=== PATIENT | female | born 1955 | race African-American/Black ===

== ENCOUNTER 2021-09-18 13:39 | Outpatient (CLI) | payer BC, SELFPAY ==
[2021-09-17 14:29] LABS: Glucose Point of Care 117 mg/dl (65-105)
--- NOTE | ~2021-09-18 | PE_ITS ---
EXAMINATION: PET skull to mid thigh DATE: 09/18/2021 15:56 INDICATION: Small nodules of the lung TECHNIQUE: 7 mCi of 18-fluorodeoxyglucose (18-FDG) was administered i.v. Low dose computed tomography (CT) images were acquired from the base of the brain to the proximal thighs for attenuation correcti on and anatomic localization. Positron emission tomography (PET) images were acquired after injection . Images including fused PET/CT images were reconstructed in axial, coronal, and sagittal planes. Aut omatic exposure control is employed as a dose reduction technique. COMPARISON: None FINDINGS: Head/neck: The mucosal and parapharyngeal spaces are symmetric. There is mild FDG uptake in the mucosal space wi thout associated mass, likely physiologic. Small subcentimeter hypodensity in the left thyroid gland without uptake, likely benign. No significant cervical lymphadenopathy. No significant abnormality of the sinuses or mastoids. Chest: There is mild mediastinal and bilateral hilar FDG uptake within lymph nodes. For instance subcarinal lymph nodes demonstrate a max SUV of 5.0. Right hilar lymph nodes demonstrate a max SUV of 4.7 and le ft hilar lymph nodes demonstrate a max SUV of 4.7. AP window lymph nodes demonstrate a max SUV of 6. There are multiple small nodules in both lungs. There is a 9 mm nodule in the left upper lobe with mi ld FDG uptake. Maximum SUV of 2.1. There is pleural-based nodularity at the left upper lobe with mild FDG uptake of 1.8. This nodule measures 1.8 x 1.3 cm with irregular margins. There is an 8 mm nodule in the right apex with maximum SUV of 2. There is biapical pleural thickening/scarring. There are mu ltiple additional scattered bilateral pulmonary nodules in both lungs with only mild FDG uptake. No s ignificant pleural or pericardial effusion. Cardiomegaly. Abdomen/pelvis/proximal thighs: There is no hypermetabolic activity in the abdomen or pelvis. There is mild uptake throughout the bow el without associated mass, likely physiologic. There is a 4 cm liver cyst. There are calcified granu peter of the spleen. The pancreas, adrenal glands and kidneys are unremarkable. Gallbladder is presen t. Nonobstructive bowel gas pattern. Moderate colonic fecal loading. No lymphadenopathy. No abnormal pelvic masses or fluid collections. No free air or free fluid. Bones/Soft tissues: No hypermetabolic activity in the bones or soft tissues. IMPRESSION: 1. Mediastinal and bilateral hilar lymphadenopathy with hypermetabolic FDG uptake. Differential diagn osis includes metastatic disease, lymphoma and benign etiologies such as sarcoidosis. 2: Innumerable bilateral pulmonary nodules, largest in the left upper lobe measuring up to 1.8 cm wit h intermediate FDG uptake and maximum SUV of 1.8. These are indeterminate for malignancy and may be i nfectious/inflammatory sequela or sequela of lymphoma or sarcoidosis. Reviewed, dictated and finalized at location A. IMPRESSION: 1. Mediastinal and bilateral hilar lymphadenopathy with hypermetabolic FDG upta ke. Differential diagnosis includes metastatic disease, lymphoma and benign marilee ologies such as sarcoidosis. 2: Innumerable bilateral pulmonary nodules, largest in the left upper lobe magdiel uring up to 1.8 cm with intermediate FDG uptake and maximum SUV of 1.8. These a re indeterminate for malignancy and may be infectious/inflammatory sequela or s equela of lymphoma or sarcoidosis.
[2021-09-18 14:19] LABS: Glucose Point of Care 98 mg/dl (65-105)
== END 2021-09-18 13:40 | disposition home or self-care (01) ==
PROVIDERS: PCP Internal Medicine; Visit Provider Internal Medicine Pulmonary Disease
DX: R91.1 Solitary pulmonary nodule (principal)
CPT/HCPCS: 78815; A9552

== ENCOUNTER 2025-05-09 08:56 | Outpatient (CLI) | payer OTHER, SELFPAY ==
--- NOTE | ~2025-05-09 | MM_ITS ---
EXAMINATION: MM screening juan jose BI w merary HISTORY: Screening TECHNIQUE: Craniocaudal and mediolateral oblique 3-D tomosynthesis images were obtained and synthetic 2-D images were generated. CAD analysis was submitted and interpreted. COMPARISON: No prior mammogram is available for comparison at this institution. BREAST PARENCHYMAL COMPOSITION: Not dense: There are scattered areas of fibroglandular density. FINDINGS: There is no evidence of suspicious mass, calcification, or architectural distortion to suggest malignancy in either breast. There has been no suspicious interval change. IMPRESSION: 1. No mammographic evidence of malignancy. 2. Recommend routine screening mammography in one year. BI-RADS Category 1: Negative Reviewed, dictated and finalized at location C. [employer] COMPLIANCE OFFICER
--- OUTSIDE RECORDS SUMMARY | 2025-05-09 09:12 | XMS_ITS | Encounter Summary ---
Author Organization [facility] Address [address] [facility] [place] [address] Phone Care Team Providers Care Purchase Request Editor Name Role Phone Dwight Villatoro MD Primary Care Provider [phone] Encounter Details Date Type Department Care Team (Latest Contact Info) Description 08/26/2019 Orders Only [facility] Scanning, Provider Social History Tobacco Use Types Packs/Day Years Used Date Smoking Tobacco: Never Assessed Comments Unknown Sex and Gender Information Value Date Recorded Sex Assigned at Not on file Legal Sex Female 6:01 AM CDT Gender Identity Not on file Sexual Orientation Not on file documented as of this encounter Plan of Treatment Not on file documented as of this encounter Procedures Procedure Name Priority Date/Time Associated Diagnosis Comments SCAN - RADIOLOGY/IMAGING 08/26/2019 documented in this encounter Results * SCAN - RADIOLOGY/IMAGING (08/26/2019) Anatomical Region Laterality Modality Other us Provider Scanning Final Result documented in this encounter Visit Diagnoses Not on filedocumented in this encounter Care Teams Purchase Request Editor Relationship Specialty Start Date End Date Dwight Villatoro MD PCP - General Internal Medicine 07/03/21 documented as of this encounter
--- OUTSIDE RECORDS SUMMARY | 2025-05-09 09:12 | XMS_ITS | Encounter Summary ---
Author Organization [facility] Address [address] [place] [address] Phone Care Team Providers Care Open Hearth Door Liner Name Role Phone Dwight Villatoro MD Primary Care Provider [phone] Encounter Details Date Type Department Care Team (Latest Contact Info) Description 12/28/2020 Orders Only [facility] Scanning, Provider [...] Date/Time Associated Diagnosis Comments SCAN - RADIOLOGY/IMAGING 12/28/2020 documented in this encounter Results * SCAN - RADIOLOGY/IMAGING (12/28/2020) Anatomical Region Laterality Modality Other us Provider Scanning Final Result documented in this encounter Visit Diagnoses Not on filedocumented in this encounter Care Teams Open Hearth Door Liner Relationship Specialty Start Date End Date Dwight Villatoro MD PCP - General Internal Medicine 07/03/21 documented as of this encounter
--- OUTSIDE RECORDS SUMMARY | 2025-05-09 09:12 | XMS_ITS | Encounter Summary ---
Author Organization [facility] Address [address] [place] [address] Phone Care Team Providers Care Herbarium Curator Name Role Phone Dwight Villatoro MD Primary Care Provider [phone] Encounter Details Date Type Department Care Team (Latest Contact Info) Description 07/04/2019 Orders Only [facility] Scanning, Provider [...] Date/Time Associated Diagnosis Comments SCAN - RADIOLOGY/IMAGING 07/04/2019 documented in this encounter Results * SCAN - RADIOLOGY/IMAGING (07/04/2019) Anatomical Region Laterality Modality Other us Provider Scanning Final Result documented in this encounter Visit Diagnoses Not on filedocumented in this encounter Care Teams Herbarium Curator Relationship Specialty Start Date End Date Dwight Villatoro MD PCP - General Internal Medicine 07/03/21 documented as of this encounter
--- OUTSIDE RECORDS SUMMARY | 2025-05-09 09:12 | XMS_ITS | Encounter Summary ---
Author Organization [facility] Address [address] [place] [address] Phone Care Team Providers Care Supervisor Scenic Arts Name Role Phone Dwight Villatoro MD Primary Care Provider [phone] Encounter Details Date Type Department Care Team (Latest Contact Info) Description 10/21/2021 Orders Only [facility] Scanning, Provider Social History Tobacco Use Types Packs/Day Years Used Date Smoking Tobacco: Never Smokeless Tobacco: Never AUDIT-C Answer Date Recorded Q1: How often do you have a drink containing alc ohol? Never 10/24/2021 Average Number of Drinks Not on file 022 Q3: How often do you have si x or more drinks on one occasion? Never 10/24/2021 Comments Unknown Sex and Gender Information Value Date Recorded Sex Assigned at Not on file Legal Sex Female 6:01 AM CDT Gender Identity Not on file Sexual Orientation Not on file documented as of this encounter Functional Status * Question Answer Date of Assessment Author BP Location Left arm 10/24/2021 8:06 AM CDT Denisha Rock RN * [place] Fall Risk Question Answer Date of Assessment Author Auto Low/High - if selected proceed to interventions (retired) High risk-fall during this visit 10/24/2021 8:04 AM CDT Denisha Rock RN Morse Fall Risk Score (Score >= 45 places fall precaution order) 50 10/24/2021 8:04 AM KASHIFT Denisha Rock RN * Fall Risk Interventions Question Answer Date of Assessment Author All Low Fall Interventions Applied Yes 10/24/2021 8:04 AM Denisha Hillman RN All Moderate Fall Interventions Applied No 10/24/2021 8:04 AM Denisha Hillman RN All High Fall Risk Interventions Applied No 10/24/2021 8:04 AM Denisha Hillman RN Additional Interventions Applied Constant observation 10/24/2021 8:04 AM Denisha Hillman RN * Alcohol Use Question Answer Date of Assessment Author Q1: How often do you have a drink containing alcohol? Never 10/24/2021 8:03 AM Harris Hillman RN Q3: How often do you have si x or more drinks on one occasion? Never 10/24/2021 8:03 AM Denisha Hillman RN * Question Answer Date of Assessment Author MAP (mmHg) 115 10/24/2021 9:23 AM Denisha Hillman RN * Question Answer Date of Assessment Author BP Location Left arm 10/24/2021 8:06 AM Denisha Hillman RN * Fall Risk Interventions Question Answer Date of Assessment Author All Low Fall Interventions Applied Yes 10/24/2021 8:04 AM Denisha Hillman RN All Moderate Fall Interventions Applied No 10/24/2021 8:04 AM Denisha Hillman RN All High Fall Risk Interventions Applied No 10/24/2021 8:04 AM Denisha Hillman RN Additional Interventions Applied Constant observation 10/24/2021 8:04 AM Denisha Hillman RN documented as of this encounter Plan of Treatment Not on file documented as of this encounter Procedures Procedure Name Priority Date/Time Associated Diagnosis Comments SCAN - LABS 10/21/2021 documented in this encounter Results * SCAN - LABS (10/21/2021) us Provider Scanning Final Result documented in this encounter Visit Diagnoses Not on filedocumented in this encounter Care Teams Supervisor Scenic Arts Relationship Specialty Start Date End Date Dwight Villatoro MD PCP - General Internal Medicine 07/03/21 documented as of this encounter
--- OUTSIDE RECORDS SUMMARY | 2025-05-09 09:13 | XMS_ITS | Data Portability ---
Author Organization [facility] [place] Address [address] [place] [address] Care Team Providers Care Restaurant Mgr Name Role Phone LARISA WATSON Primary Care Provider Assessment Encounter Date Assessment Date Assessment LastModified by Organization Details LastModified Time 06/15/2021 06/15/2021 Annual gynecological exam performed. Patient will come back in a year unless there are new symptoms. [email or web address] Not available 06/15/2021 10:41:50 11/10/2022 11/10/2022 Annual gynecological exam performed. Patient will come back in a year unless there are new symptoms. Not available 11/10/2022 15:12:39 09/28/2023 09/28/2023 Annual gynecological exam performed. Patient will come back in a year unless there are new symptoms. Not available 09/28/2023 12:04:18 10/03/2024 10/03/2024 Annual gynecological exam performed. Patient will come back in a year unless there are new symptoms. [email or web address] Not available 10/03/2024 14:13:00 Plan of Treatment Reminders Order Date Submit Date Provider Last Modified By Organization Details Last Modified Time Details Appointments None recorded. Lab None recorded. Referral None recorded. Procedures None recorded. Surgeries None recorded. Imaging None recorded. Medication Orders estradiol 0.01% (0.1 mg/gram) vaginal cream 2020 021 [id number], [address] [place], [place], [id number], 10:41:59 Patient TargetsNo targets recorded. Patient InstructionsNo instructions recorded. Reason for Referral None Reported. Results Created Date Observation Date Name Description Value Unit Range Abnormal Flag Note LastModifiedBy Organization Detail LastModifiedTime 06/17/20 21 06/17/2021 IMAGE GUIDE D PAP AND HPV REGAR DLESS image guided Pap, HPV regardless of Pap result SEE RESULT S BELOW CASE REPOR T: Cytol ogy Gynec ologi cassi Repor t Case: [id number] Autho sinaiemir rocky Provi wayne: Mg Parra MD Colle cted: 06/17 0803 Order ing Locat ion: [place] Patho logy Recei ara: 06/18 0106 First Scree n: Hope Pedro, CT Speci men: Scree jaci Pap - Image d, Cervi x STATE MENT OF ADEQU ACY: Satis facto ry for evalu ation Trans forma tion zone compo nent prese nt FINAL DIAGN OSIS: Negat natacha for Intra epith elial Lesio redd or Royer strickland (NIL) . Elect minor vazquez elisha d by Hope Pedro CT on 06/26 at 4:31 PM ----- ----- ----- ----- ----- ----- ----- ----- ----- ----- ----- ----- ----- ----- ----- ----- ----- ---- HPV RESUL TS: HPV mRNA E6/E7 : No HPV mRNA Detec josse NOTE: This high risk HPV mRNA assay detec ts fourt een high- risk HPV types (16, 18, 31, 33, 35, 39, 45, 51, 52, 56, 58, 59, 66, 68) witho ut diffe renti ation . COMME NT: Note: This speci men was revie wed by a Cytot echno logis t and/o r Patho logis t (as indic ated in this repor t) after evalu ation using the Thinp rep Imagi ng Syste m. CLINI CASSI INFOR MATIO N: Menst rual Statu s: LMP (if appli cable ): Clini cassi Histo ry/Pr eviou s Pap: Type of Neopl juan (if appli cable ): Signi fican t Clini cassi Findi ngs: Other Histo ry: Hormo lubna (if appli cable ): PAP EDUCA KYRIE L NOTE: The Pap Test is a scree jaci test with an inher ent false negat natacha rate. Liqui d-bas e sampl ing may decre ase, but will not elimi abdiel, false negat natacha resul ts. A negat natacha resul t does not precl ude the prese nce and/o r devel opmen t of disea se, since the prese nce of abnor mal cells in the sampl e depen ds on the locat ion of the lesio n and sampl ing techn ique. Maged nued regul ar scree jaci is the best metho d of cance r preve ntion . If repor josse cytol ogic findi ng do not corre late with physi cassi and/o r histo rical findi ngs, furth er inves tigat ion is recom onelia d, as clini beatris alanis nted. Not Available [facility] (Lab) [address], [place], [address], 06/26/2021 17:34:18 11/11/19 23 11/10/2022 IMAGE GUIDE D PAP AND HPV REGAR DLESS image guided Pap, HPV regardless of Pap result SEE RESULT S BELOW CASE REPOR T: Cytol ogy Gynec ologi cassi Repor t Case: [id number] Autho yaquelin g Provi wayne: Mg Parra MD Colle cted: 11/10 1658 Order ing Locat ion: [place] Patho logy Recei ara: 11/11 0130 First Scree n: Nury Hardin h, CT Speci men: Scree jaci Pap - Image d, Cervi x STATE MENT OF ADEQU ACY: Satis facto ry for evalu ation Trans forma tion zone compo nent prese nt FINAL DIAGN OSIS: Negat natacha for Intra epith elial Lesio n or Royer strickland (NIL) . Elect manuelyisel gutierreze d by Nury Hardin, CT on 2022 at 12:14 PM ----- ----- ----- ----- ----- ----- ----- ----- ----- ----- ----- ----- ----- ----- ----- ----- ----- ---- HPV RESUL TS: HPV mRNA E6/E7 : No HPV mRNA Detec josse NOTE: This high risk HPV mRNA assay detec ts fourt een high- risk HPV types (16, 18, 31, 33, 35, 39, 45, 51, 52, 56, 58, 59, 66, 68) witho ut diffe renti ation . COMME NT: This speci men was revie wed by a Cytot echno logis t and/o r Patho logis t (as indic ated in this repor t) after evalu ation using the Thinp rep Imagi ng Syste m. CLINI CASSI INFOR MATIO N: Menst rual Statu s: LMP (if appli cable ): Clini cassi Histo ry/Pr eviou s Pap: Type of Neopl juan (if appli cable ): Signi fican t Clini cassi Findi ngs: Other Histo ry: Hormo lubna (if appli cable ): PAP EDUCA KYRIE L NOTE: The Pap Test is a scree jaci test with an inher ent false negat natacha rate. Liqui d-bas ed sampl ing may decre ase, but will not elimi abdiel, false negat natacha resul ts. A negat natacha resul t does not precl ude the prese nce and/o r devel opmen t of disea se, since the prese nce of abnor mal cells in the sampl e depen ds on the locat ion of the lesio n and sampl ing techn ique. Maged nued regul ar scree jaci is the best metho d of cance r preve ntion . If repor josse cytol ogic findi ng do not corre late with physi cassi and/o r histo rical findi ngs, furth er inves tigat ion is recom onelia d, as clini beatris alanis nted. Not Available [facility] (Lab) [address], [place], [address], 11/11/2022 13:19:39 09/28/19 24 09/28/2023 IMAGE GUIDE D PAP AND HPV REGAR DLESS image guided Pap, HPV regardless of Pap result SEE RESULT S BELOW CASE REPOR T: Cytol ogy Gynec ologi cassi Repor t Case: [id number] Autho yaquelin rocky Provi wayne: Mg Parra MD Colle cted: 09/27 1236 Order ing Locat ion: [place] Patho logy Recei ara: 09/28 0141 First Scree n: Rolf ritter, Obey ashford, CT Speci men: Scree jaci Pap - Image d, Cervi x STATE MENT OF ADEQU ACY: Satis facto ry for evalu ation Trans forma tion zone compo nent prese nt FINAL DIAGN OSIS: Negat natacha for Intra epith elial Lian rainey or Royer strickland (NIL) . Konstantin vazquez elisha d by Obey Diamond am, CT on 024 at 9:51 AM ----- ----- ----- ----- ----- ----- ----- ----- ----- ----- ----- ----- ----- ----- ----- ----- ----- ---- HPV RESUL TS: HPV mRNA E6/E7 : No HPV mRNA Detec josse NOTE: This high risk HPV mRNA assay detec ts fourt een high- risk HPV types (16, 18, 31, 33, 35, 39, 45, 51, 52, 56, 58, 59, 66, 68) witho ut diffe renti ation . COMME NT: This speci men was revie wed by a Cytot echno logis t and/o r Patho logis t (as indic ated in this repor t) after evalu ation using the Thinp rep Imagi ng Syste m. CLINI CASSI INFOR MATIO N: Menst rual Statu s: LMP (if appli cable ): Clini cassi Histo ry/Pr eviou s Pap: Type of Neopl juan (if appli cable ): Signi fican t Clini cassi Findi ngs: Other Histo ry: Hormo lubna (if appli cable ): PAP EDUCA KYRIE L NOTE: The Pap Test is a scree jaci test with an inher ent false negat natacha rate. Liqui d-bas ed sampl ing may decre ase, but will not elimi abdiel, false negat natacha resul ts. A negat natacha resul t does not precl ude the prese nce and/o r devel opmen t of disea se, since the prese nce of abnor mal cells in the sampl e depen ds on the locat ion of the lesio n and sampl ing techn ique. Maged nued regul ar scree jcai is the best metho d of cance r preve ntion . If repor josse cytol ogic findi ng do not corre late with physi cassi and/o r histo rical findi ngs, furth er inves tigat ion is recom onelia d, as clini beatris alanis nted. Not Available [facility] (Lab) [address], [place], [address], 09/30/2023 10:56:35 10/04/19 25 10/03/2024 IMAGE GUIDE D PAP AND HPV REGAR DLESS image guided Pap, HPV regardless of Pap result SEE RESULT S BELOW CASE REPOR T: Cytol ogy Gynec ologi cassi Repor t Case: [id number] Autho yaquelin g Provi wayne: Mg Parra MD Colle cted: 10/03 1432 Order ing Locat ion: [place] Patho logy Recei ara: 10/04 0223 First Scree n: Bill Dee, CT Speci men: Scree jaci Pap - Image d, Cervi x STATE MENT OF ADEQU ACY: Satis facto ry for evalu ation Trans forma tion zone compo nent prese nt Elle aparicio ring infla mmati on prese nt. ----- ----- ----- ----- ----- ----- ----- ----- ----- ----- ----- ----- ----- ----- ----- ----- ----- ---- FINAL DIAGN OSIS: Negat natacha for Intra epith elial Lian rainey or Royer strickland (NIL) . Elect minor mckeon by Bill Dee, BECKY on 025 at 1107 CDT ----- ----- ----- ----- ----- ----- ----- ----- ----- ----- ----- ----- ----- ----- ----- ----- ----- ---- HPV RESUL TS: HPV mRNA E6/E7 : No HPV mRNA Detec josse NOTE: This high risk HPV mRNA assay detec ts fourt een high- risk HPV types (16, 18, 31, 33, 35, 39, 45, 51, 52, 56, 58, 59, 66, 68) witho ut diffe renti ation . COMME NT: This speci men was revie wed by a Cytot echno logis t and/o r Patho logis t (as indic ated in this repor t) after evalu ation using the Thinp rep Imagi ng Syste m. CLINI CASSI INFOR MATIO N: Menst rual Statu s: LMP (if appli cable ): Clini cassi Histo ry/Pr eviou s Pap: Type of Neopl juan (if appli cable ): Signi lore t Clini cassi Findi ngs: Other Histo ry: Hormo lubna (if appli cable ): PAP EDUCA KYRIE L NOTE: The Pap Test is a scree jaci test with an inher ent false negat natacha rate. Liqui d-bas ed sampl ing may decre ase, but will not elimi abdiel, false negat natacha resul ts. A negat natacha resul t does not precl ude the prese nce and/o r devel opmen t of disea se, since the prese nce of abnor mal cells in the sampl e depen ds on the locat ion of the lesio n and sampl ing techn ique. Maged nued regul ar scree jaci is the best metho d of cance r preve ntion . If repor josse cytol ogic findi ng do not corre late with physi cassi and/o r histo rical findi ngs, furth er inves tigat ion is recom onelia d, as clini beatris alanis nted. Not Available [facility] (Lab) [address], [place], [address], 10/05/2024 12:13:19 09/29/19 24 11/17/2022 MAMMO , scree jaci, bilat eral No observ ation record ed. [facility] [address] [place], [address], 10/08/2023 10:57:20 Result Notes None recorded. Procedures Surgical History Date Name Laterality Status Provider Name and Address Organization Details Recorded Time 11/24/19 24 Date of Last Mammogram completed Valeria Verma [facility] 10/03/2024 14:19:31 09/28/19 24 Date of Last Pap Smear completed Shobha Deng [facility] 09/28/2023 12:05:02 12/26/19 21 completed Farzana Brandie [facility] 05/30/2021 15:27:53 12/26/19 20 Date of Last Colonoscopy completed Farzana Diego [facility] 05/30/2021 15:27:53 12/26/19 20 Colonoscopy completed Shobha Deng [facility] 09/28/2023 12:06:35 12/23/19 19 Most Recent Bone Density completed Farzana Diego [facility] 05/30/2021 15:27:53 06/29/19 07 Endometrial Ablation completed [facility] 09/28/2023 12:06:19 03/31/19 83 section completed [facility] 09/28/2023 12:06:13 10/13/18 82 Caesarean Section completed [facility] 09/28/2023 12:05:55 Imaging Results None recorded. Procedure Notes None recorded. Medical Equipment None Reported. Allergies Allergen ID Allergen Name Allergen Category Reaction Reaction Severity Criticality Documentation Date Start Date Code Code System Note Provider Name and Address Organization Details Recorded Time 53654 Product containin g penicilli n (product) medicatio n rash Not available Not available 05/30/2021 30646 8001 SNOMED Farzana Diego [facility] 15:28:13 Medications Name Sig Start Date Stop Date Status Note LastModified by Organization Details LastModified Time azithromyci n 250 mg tablet 11/10 completed Not Available Not Available Not Available estradiol 0.01% (0.1 mg/gram) vaginal cream Insert 1 g 3 times a week by vaginal route. 06/15 completed Not Available Not Available Not Available methylpredn isolone 4 mg tablets in a dose pack FOLLOW PACKAGE DIRECTION S 11/10 completed Not Available Not Available Not Available Fish Oil 09/27 completed Not Available Not Available Not Available ferrous sulfate active Not Available Not Available Not Available flaxseed oil active Not Available Not Available Not Available Vitamin D active Not Available Not Nat ilable Not Available Vitamin B12 active Not Available Not A vailable Not Available Vitals Date Recorded Body height Body mass index (BMI) Body weight Systolic And Diastolic Provider Name and Address Organization Details Last Updated DateTime 09/28/2023 172.72 cm 22 kg/m2 20512.89 g 119/73 mm[Hg] [facility] 09/28/2023 12:04:34 Date Recorded Body height Body mass index (BMI) Body weight Systolic And Diastolic Provider Name and Address Organization Details Last Updated DateTime 10/03/2024 172.72 cm 22.5 kg/m2 13318.67 g 163/85 mm[Hg] Valeria Verma [facility] 10/03/2024 14:13:52 Date Recorded Body height Body mass index (BMI) Body weight Systolic And Diastolic Provider Name and Address Organization Details Last Updated DateTime 11/10/2022 172.72 cm 22.4 kg/m2 07932.08 g 118/78 mm[Hg] [facility] 11/10/2022 15:12:58 Date Recorded Body height Body mass index (BMI) Body weight Systolic And Diastolic Provider Name and Address Organization Details Last Updated DateTime 05/30/2021 172.72 cm 23.4 kg/m2 26005.22 g 131/74 mm[Hg] [facility] 05/30/2021 15:27:49 Date Recorded Body height Body mass index (BMI) Body weight Systolic And Diastolic Provider Name and Address Organization Details Last Updated DateTime 06/15/2021 172.72 cm 23.6 kg/m2 16340.82 g 138/85 mm[Hg] Clarissaina Novaksommer [facility] 06/15/2021 10:41:57 Social History Question Answer Notes LastModified by Organizat ion Details LastModified Time Tobacco Smoking Status Never Smoker Chris mccurdy [facility] 11/10/2022 14:58:47 Do You Have An Advance Directive? No Information n ot available 05/30/2021 Are You Blind Or Do You Have Difficulty Seeing? No Information n ot available 05/30/2021 What Is Your Level Of Caffeine Consumption? Moderate Information not available 05/30/2021 How Much Tobacco Do You Chew? None Information not available 05/30/2021 In The 14 Days Before Symptom Onset, Have You Had Close Contact With A Laboratory-confirm ed COVID-19 While That Case Was Ill? No Information n ot available 05/30/2021 In The 14 Days Before Symptom Onset, Have You Had Close Contact With A Person Who Is Under Investigation For COVID-19 While That Person Was Ill? No Information not available 05/30/2021 Have You Been To An Area Known To Be High Risk For COVID-19? No Information not available 05/30/2021 Are You Deaf Or Do You Have Serious Difficulty Hearing? No Information not available 05/30/2021 What Type Of Diet Are You Following? REGULAR Information n ot available 05/30/2021 Are There Any Guns Present In Your Home? No Information not available 05/30/2021 Do You Use Protection During Sex? No Information not available 05/30/2021 Do You Use Your Seat Belt Or Car Seat Routinely? Yes Information not available 05/30/2021 Do You Have Smoke And Carbon Monoxide Detectors In Your Home? Yes Information not available 05/30/2021 How Much Tobacco Do You Smoke? No Information not available 05/30/2021 Do You Use Sunscreen Routinely? Yes Information not available 05/30/2021 Have You Used IV Drugs? No Information not available 05/30/2021 Do You Have Difficulty Walking Or Climbing Stairs? No [email or web address] Information not available 09/28/2023 Sex: Unknown Functional Status Question Answer Note LastModified by Organizat ion Details LastModified Time Do you use any illicit or recreational drugs? No Information not available 05/30/2021 What is your level of alcohol consumption? None Information not available 05/30/2021 Are you able to walk independently without assistance or assistive devices? [email or web address] Information not available 05/30/2021 Are you able to care for yourself independently? 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 No [email or web address] Information not available 09/28/2023 What is your exercise level? Moderate Information not available 05/30/2021 Mental Status Question Answer Note LastModified by Organization D etails LastModified Time Do you feel stressed (tense, restless, nervous, or anxious, or unable to sleep at night)? [id number] Information not available 05/30/2021 Family History Relationship Description Onset Age of this Age Resolved Age Notes LastModified by Organization Details LastModified Time Father No current problems or disability [email or web address] Not available 10/03 14:19:47 Mother No current problems or disability [email or web address] Not available 10/03 14:19:47 Medical History Condition Response Allergies (Food, seasonal, environmental ) N Other N Breast Cancer N Drug/Latex Allergies/Reactions N Blood Transfusion N Dermatologic Disorders N Lung Disease N Defects or Inherited Disease N Breast Problem N Gestational Diabetes N Hematologic disorders N Anesthesia Complications N History of STI N Deep Vein Thrombosis N Polycystic ovary syndrome N Anxiety Disorder N Autoimmune disease N Arthritis N Infertility N Polyps N Acid Reflux (GERD) N History of abnormal pap N Cancer N Stroke N Varicosities N Neurologic/Epilepsy N Endometriosis N High Cholesterol N Headaches N Fibromyalgia N Kidney Disease N Heart Problems N Kidney or Bladder Problems N Thyroid Problems N GI Problems N Eating Disorder N Anemia N Art (IVF or FET) N Psychiatric Illness N Ovarian Cancer N Diabetes N Pulmonary (TB, Asthma) N Hepatitis/Liver Disease N No Past Medical History N Eczema N Urinary Tract Infection N Abuse/Domestic Violence N Asthma N Trauma/Violence N Depression/ depression N Heart Disease N Pre-Eclampsia N Hypertension N Osteoporosis N Thrombophilias N Gynecological History Statement/Question Response Abnormal Pap N Date of Last Mammogram 11/24/2023 Date of LMP 06/29/2006 N On BCP's at Conception? N STIs/STDs N Was last menstrual period normal N HPV Vaccine N Current Control Method Ablation Age at First Child 20 Date of Last Colonoscopy 12/26/2019 Most Recent Bone Density 12/22/2018 Sexually Active? Y N/A Menses Monthly N Date of DEXA bone scan Age of first menstrual cycle 20 Date of Last Pap Smear 09/28/2023 Sexual Problems? Y LMP Unknown 12/25/2020 N Obstetrics History GPAL:G 2 P 2 0 0 2 Type Value Full Term 2 Living 2 Total 2 Past Encounters Encounter ID Performer Location Encounter Start Date Encounter Closed Date Diagnosis/Indication Diagnosis SNOMED-CT Code Diagnosis ICD10 Code Diagnosis IMO Codes Diagnosis Note [id number] Sung Parra MD [place] [address] [address] 05/30/2021 15:00:20 05/31/2021 09:08:43 Vaginal dryness 75192826 N89.8 Disorder of vulva 254732 7 N90.9 this patient is a 65-year-ol d female presents for vulvar swelling. The right side of her vulva, her labia majora on the right is significan tly more swollen than her left she states. It is nontender. She states that it gets bigger when she is in the shower. It has been present for many years. she was examined. The right vulva and a/labia majora or is significan tly larger than the left side. It is soft. There is heterogene ous thick mass and the right side. It is uniform throughout the labia majora. Ultrasound of the area was performed. There is a uniform heterogene ous structure in this area. Is consistent within normal labia majora. It is larger than the left side. There is no air or fluid within. There appears to be no discrete tumor. I discussed these findings and the ultrasound results with the patient. We spent over 35 minutes face-to-fa ce. We discussed various aspects of the situation. We reviewed ultrasound images together. She was given extensive reassuranc e. She seemed reassured. She return for well-woman exam. She will observe the area. [id number] Sung Parra MD [place] [address] [address] 05/30/2021 15:49:23 05/30/2021 17:12:28 [id number] Sung Parra MD [place] [address],[facility] [address] 06/15/2021 10:34:39 06/15/2021 10:59:26 Gynecologic examination 20781912 Z01.419 This patient is here for her annual exam. A thorough history was taken. A physical exam was performed. Age appropriat e routine health screening was ordered, performed, and discussed. Recommende d testing was ordered. She was asked to follow up in one year. She will be informed of any test results. Mammogram - [order ] Colonoscop y - [done ] Bone Density - [done ] Cholestero l - [done ] Pap - today [id number] Sung Parra MD [place] [address],[place] [address] 11/10/2022 14:56:50 11/10/2022 15:59:15 Gynecologic examination [id number] Z01.419 Z11.51 This patient is here for her annual exam. A thorough history was taken. A physical exam was performed. Age appropriat e routine health screening was ordered, performed, and discussed. Recommende d testing was ordered. She was asked to follow up in one year. She will be informed of any test results. Mammogram - [order ] Colonoscop y - [done ] Bone Density - [done ] Cholestero l - [done ] Pap - today [id number] uSng Parra MD [place] [address],[place] [address] 09/28/2023 11:46:53 09/28/2023 12:44:02 Gynecologic examination [id number] Z01.419 Z11.51 This patient is here for her annual exam. A thorough history was taken. A physical exam was performed. Age appropriat e routine health screening was ordered, performed, and discussed. Recommende d testing was ordered. She was asked to follow up in one year. She will be informed of any test results. Mammogram - done Colonoscop y - done Bone Density - done Cholestero l - done Pap - today [id number] Sung Parra MD [place] [address],[facility] [place] [address] 10/03/2024 13:50:36 10/03/2024 14:50:36 Gynecologic examination [id number] Z01.419 Z11.51 This patient is here for her annual exam. A thorough history was taken. A physical exam was performed. Age appropriat e routine health screening was ordered, performed, and discussed. Recommende d testing was ordered. She was asked to follow up in one year. She will be informed of any test results. Mammogram - done Colonoscop y - done Bone Density - done Cholestero l - done Pap - today Health Concerns Section Related Observation LastModified by Organization Detai ls LastModified Time None Recorded Concern Status LastModified by Organization Details LastModified Time None Recorded Advance Directives Directive N: Payers Insurance Date Sequence Insurance Name Policy Number Policy Abbott Covered Member ID Abbott Member ID Guarantor Name 10/10/2024 1 [facility] [id number] Dinah Gordillo [id number] Dinah Gordillo 10/08/2023 1 [place] Haley Gordillo [id number] Dinah Gordillo 10/08/2023 1 [place] Haley Gordillo [id number] Dinah Gordillo 10/08/2023 1 [place] Haley Gordillo [id number] Dinah Gordillo 10/08/2023 1 [place] [id number] Haley Gordillo [id number] Dinah Gordillo 10/10/2024 2 [facility] [id number] Dinah Gordillo [id number] Dinah Gordillo Notes Date Note Type Note Provider Name and Address Organization Details Recorded Time 05/30/20 21 text/htm l this patient is a 65-year-old female presents for vulvar swelling. The right side of her vulva, her labia majora on the right is significantly more swollen than her left she states. It is nontender. She states that it gets bigger when she is in the shower. It has been present for many years. she was examined. The right vulva and a/labia majora or is significantly larger than the left side. It is soft. There is heterogeneous thick mass and the right side. It is uniform throughout the labia majora. Ultrasound of the area was performed. There is a uniform heterogeneous structure in this area. Is consistent within normal labia majora. It is larger than the left side. There is no air or fluid within. There appears to be no discrete tumor. I discussed these findings and the ultrasound results with the patient. We spent over 35 minutes [id number]. We discussed various aspects of the situation. We reviewed ultrasound images together. She was given extensive reassurance. She seemed reassured. She return for well-woman exam. She will observe the area. Sung Parra MD [address], [place], [address], [facility] 05/30/2021 20:39:02 06/15/20 21 text/htm l Annual Furniture Packer Post-MenopausalReported by PatientGenitourinary symptomsFor menopausal symptoms, patient reportsno menopausal symptoms. For vaginal bleeding, patient reportshistory of menopause having occurredandno history of post menopausal bleeding. For urinary symptoms, patient reportsno hematuria,no incontinence,no nocturia, andno urinary frequency. For vulva, patient reportsno genital lesionandno vulvar atrophy. For vagina, patient reportsnormal vaginal dischargeandno vaginal atrophy.Breast symptomsFor breast, patient reportsno breast lump,no nipple discharge, andno breast pain.Psychological symptomsFor sexual complaints, patient reportspain during intercoursebut reportsno sexual complaints. For psychological symptoms, patient reportsno depressionandno anxiety. Sung Parra MD [address], [place], [address], [facility] 06/15/2021 10:59:09 11/11/19 23 text/htm l Annual GYNReported by PatientHistoryFor history, patient reportsno gynecologic complaints.Genitourinary symptomsFor urinary symptoms, patient reportsno hematuria. For vulva, patient reportsno genital lesion. For vagina, patient reportsnormal vaginal discharge.Breast symptomsFor breast, patient reportsno breast painandno breast lump.Endocrine symptomsFor menopausal symptoms, patient reportsno menopausal symptoms.Psychological symptomsFor psychological symptoms, patient reportsno depressionandno anxiety.Preventative measuresFor preventive measures, patient reportsencourage self breast examinationandencourage regular exercise. Sung Parra MD [address], [place], [address], [facility] 11/10/2022 15:49:09 09/28/19 24 text/htm l Annual GYNReported by PatientHistoryFor history, patient reportsno gynecologic complaints.Genitourinary symptomsFor urinary symptoms, patient reportsno hematuriaandno incontinence. For vulva, patient reportsno genital lesion. For vagina, patient reportsnormal vaginal discharge.Breast symptomsFor breast, patient reportsno breast painandno breast lump.Endocrine symptomsFor sexual complaints, patient reportsno sexual complaintsandno pain during intercourse. For menopausal symptoms, patient reportsno menopausal symptoms.Psychological symptomsFor psychological symptoms, patient reportsno depressionandno anxiety.Preventative measuresFor preventive measures, patient reportsencourage self breast examinationandencourage regular exercise. Sung Parra MD [address], [place], [address], [facility] 09/28/2023 12:43:12 10/04/19 25 text/htm l Annual GYNReported by PatientHistoryFor history, patient reportsno gynecologic complaints.Genitourinary symptomsFor urinary symptoms, patient reportsno hematuria. For vagina, patient reportsnormal vaginal discharge.Breast symptomsFor breast, patient reportsno breast painandno breast lump.Endocrine symptomsFor sexual complaints, patient reportsno sexual complaintsandno pain during intercourse. For menopausal symptoms, patient reportsno menopausal symptoms.Psychological symptomsFor psychological symptoms, patient reportsno depressionandno anxiety.Preventative measuresFor preventive measures, patient reportsencourage self breast examinationandencourage regular exercise. Sung Parra MD [address], [place], [address], [facility] 10/03/2024 14:47:09 OBGyn Episode Ob Episode Information Episode Created Date Number of Fetuses Patient Bloodtype Patient rh Status Prepregnancy Weight lbs Domestic Partner Domestic Partner Phone Father Name Nursing Program Coordinator Status 05/30/20 21 1 CLOSED Fetus Data First Name Last Name Admitted to NICU Weight (g) Sex Living Outcome Pediatric Complications Fetus ID Race Codes Race Delivery Type 3401.94 M Full Term [id number] Repeat Eric Calculation Initial Eric Date Initial Exam Date Initial Exam Provider Initial Ultrasound Date Last Menstrual Period Date Ultra Sound Weeks Gestation 0 Eighteen To Twenty Week Eric Update Ultra Sound Date Fundal Height At Umbil Quickening Date Ultra Sound Latest Weeks Gestation Final Eric Confirmed By Final Eric Confirmed Date Final Eric Date Ultra Sound Latest Days Gestation 0 0 Menstrual History Last Menstrual Date Menses Monthly On Bcp Conception Prior Menses Frequency Hcg Plus Date Menarche Onset Age Delivery Information Delivery Date Delivery Type Labor Anesthesia Weeks Gestation Incision Type Labor Labor Length Hrs Delivered By Post Complications Tubal Sterilization Discharge Date Comments 3 Jeovany Discharge Information Feeding Method Contraceptive Method Maternal HG B and HCT Levels Ob Episode Information Episode Created Date Number of Fetuses Patient Bloodtype Patient rh Status Prepregnancy Weight lbs Domestic Partner Domestic Partner Phone Father Name Nursing Program Coordinator Status 05/30/20 21 1 CLOSED Fetus Data First Name Last Name Admitted to NICU Weight (g) Sex Living Outcome Pediatric Complications Fetus ID Race Codes Race Delivery Type 3146.56 [id number] F Full Term [id number] Primary Eric Calculation Initial Eric Date Initial Exam Date Initial Exam Provider Initial Ultrasound Date Last Menstrual Period Date Ultra Sound Weeks Gestation 0 Eighteen To Twenty Week Eric Update Ultra Sound Date Fundal Height At Umbil Quickening Date Ultra Sound Latest Weeks Gestation Final Eric Confirmed By Final Eric Confirmed Date Final Eric Date Ultra Sound Latest Days Gestation 0 0 Menstrual History Last Menstrual Date Menses Monthly On Bcp Conception Prior Menses Frequency Hcg Plus Date Menarche Onset Age Delivery Information Delivery Date Delivery Type Labor Anesthesia Weeks Gestation Incision Type Labor Labor Length Hrs Delivered By Post Complications Tubal Sterilization Discharge Date Comments 2 40 Marta Discharge Information Feeding Method Contraceptive Method Maternal HG B and HCT Levels
--- OUTSIDE RECORDS SUMMARY | 2025-05-09 09:13 | XMS_ITS | Clinical Summary ---
Author Organization [facility] Care Team Providers Care Advanced Manager Name Role Phone Dwight Villatoro MD Primary Care Provider [phone] Allergies Active Allergy Reactions Criticality Noted Date Comments Penicillins Rash Medium 07/03/2021 Medications alendronate sodium (ALENDRONATE ORAL) 0 Active omega 3-pqq-yaq-fish oil (Fish OiL) 100-160-1,000 mg capsule 5 Active amitriptyline (ELAVIL) 25 mg tablet Take 1 tablet every day by oral route at bedtime. Active calcium carbonate-vitam in D3 (CALTRATE 600 + D) 1500 mg (600 mg elemental) -400 units per tablet Take by oral route. 0 Active ginkgo biloba 60 mg capsule Take by mouth Ac tive ferrous sulfate 325 mg (65 mg of elemental iron) tabletIndicatio ns:Iron Deficiency Anemia Take 65 mg of elemental iron by mouth daily with breakfast Active Active Problems Problem Noted Date Diagnosed Date LAD (lymphadenopathy) 10/14/2021 Other disorders of lung Surgical History Surgery Date Site/Laterality Comments ABDOMINAL SURGERY c section X2 Medical History Medical History Date Comments History of transfusion Family History Medical History Relation Name Comments Emphysema Father Liver disease Father Blindness Mother Diabetes Mother Diabetes type II Mother Heart disease Mother Relation Name Status Comments Father Mother (Age 82) Social History Tobacco Use Types Packs/Day Years Used Date Smoking Tobacco: Never Smokeless Tobacco: Never AUDIT-C Answer Date Recorded Q1: How often do you have a drink containing alc ohol? Never 10/24/2021 Average Number of Drinks Not on file 022 Q3: How often do you have si x or more drinks on one occasion? Never 10/24/2021 Personal Safety Answer Date Recorded Getting School Help Needed Not on file 08/29 Comments Unknown Sex and Gender Information Value Date Recorded Sex Assigned at Not on file Legal Sex Female 6:01 AM CDT Gender Identity Not on file Sexual Orientation Not on file Last Filed Vital Signs Vital Sign Reading Time Taken Comments Blood Pressure 117/58 10/24/2021 10:40 AM CDT Pulse 68 10/24/2021 10:40 AM CDT Temperature 36.2 C (97.1 F) 10/24/2021 8:06 AM CDT Respiratory Rate 24 10/24/2021 10:40 AM CDT Oxygen Saturation 95% 10/24/2021 10:40 AM CDT Inhaled Oxygen Concentration - - Weight 69.4 kg (153 lb) 10/24/2021 8:06 AM CDT Height 172.7 cm (5' 8) 10/24/2021 8:06 AM CDT Body Mass Index 23.26 10/24/2021 8:06 AM CDT Plan of Treatment Not on file Insurance Care Teams Advanced Manager Relationship Specialty Start Date End Date Dwight Villatoro MD PCP - General Internal Medicine 07/03/21
== END 2025-05-09 08:57 | disposition home or self-care (01) ==
PROVIDERS: PCP Internal Medicine
DX: Z12.31 Encounter for screening mammogram for malignant neoplasm of breast (principal)
CPT/HCPCS: 77063; 77067